=== PATIENT | female | born 2000 | race Caucasian/White ===

== ENCOUNTER 2021-08-30 11:51 | Outpatient (CLI) | payer BC, SELFPAY ==
--- NOTE | 2021-08-30 12:12 | ECHO_ITS ---
Patient Info Name: Angelique Lea Age: 20 years : 2000 Gender: Female Ht: 64 in Wt: 270 lbs BSA: 2.42 m2 HR: 78 bpm BP: 105 / 78 mmHg Technical Quality: Fair Exam Date: 08/30/2021 12:50 PM Exam Location: [facility] Patient Status: Outpatient Admit Date: 08/30/2021 Staff Ordering Physician: Ignacio Shah DO Automatic Shirring Machine Operator: Aline Valderrama RDCS Attending Provider: Ignacio Shah DO Referring Physician: Pablo PEREZ; Exam Type: CA echo doppler color flow Study Info Indications I47.1 - Supraventricular tachycardia Complete two-dimensional, color flow and Doppler transthoracic echocardiogram is performed. Summary 1. Complete two-dimensional, color flow and Doppler transthoracic echocardiogram is performed. 2. Left ventricular chamber dimension is normal. 3. Left ventricular systolic function is normal, estimated at 65-70%. 4. The left ventricular diastolic function is normal. 5. E/e' 7 is not elevated. 6. Global longitudinal strain is normal at -17.1%. 7. No pulmonary hypertension, estimated pulmonary arterial systolic pressure is 23 mmHg. 8. There is trivial pericardial effusion. Left Ventricle E/e' 7 is not elevated. Global longitudinal strain is normal at -17.1%. Left ventricular chamber dimension is normal. Left ventricular systolic function is normal, estimated at 65-70%. The left ventricular diastolic function is normal. Right Ventricle Right ventricular systolic function is normal and with normal TAPSE 2.7 cm. Right ventricular chamber dimension is normal. Left Atria Left atrial chamber dimension is normal. Right Atria Right atrial chamber dimension is normal. Aortic Valve The aortic valve is trileaflet. There is no aortic valve stenosis. There is no aortic valve regurgitation. Pulmonic Valve There is no pulmonic regurgitation. Mitral Valve There is no mitral valve stenosis. There is no mitral valve regurgitation. Tricuspid Valve There is no tricuspid valve regurgitation. No pulmonary hypertension, estimated pulmonary arterial systolic pressure is 23 mmHg. Pericardium/Pleural There is trivial pericardial effusion. Inferior Vena Cava Normal inferior vena cava with >50% collapse upon inspiration consistent with normal right atrial pressure, 5 mmHg. Aorta The aortic root size at the sinus of Valsalva is normal. Left Ventricular Outflow Tract Name Value Normal LVOT 2D LVOT Diameter 2.0 cm LVOT Doppler LVOT Peak Gradient 4 mmHg LVOT Mean Gradient 2 mmHg LVOT VTI 17 cm LVOT VTI/AV VTI Ratio 0.9 LVOT Stroke Volume 52 ml LVOT CO 3.9 l/min LVOT CI 1.6 l/min/m2 Pulmonic Valve Name Value Normal RVOT Doppler
== END 2021-08-30 11:52 | disposition home or self-care (01) ==
LOC: ANHCARD 11:56
PROVIDERS: PCP Physician Assistant; Visit Provider Internal Medicine Cardiovascular Disease
DX: I47.1 Supraventricular tachycardia (principal)
CPT/HCPCS: 93306

== ENCOUNTER 2021-11-30 23:19 | Observation (INO) | payer BC, SELFPAY ==
--- NOTE | ~2021-11-30 | XR_ITS ---
EXAMINATION: XR chest 1V INDICATION: Chest pain TECHNIQUE: AP view of the chest is obtained. COMPARISON: 05/12/2018 FINDINGS: The lungs are free of acute opacities. No pleural effusion or pneumothorax. The cardiomedia stinal silhouette is normal. The visualized bones and soft tissues are unremarkable. IMPRESSION: 1. No acute cardiopulmonary abnormality. Reviewed, dictated and finalized at location B.
--- NOTE | ~2021-11-30 | CT_ITS ---
EXAMINATION: CT BRAIN W/O DATE: 12/01/2021 00:08 INDICATION: Left-sided weakness. Suspected CVA. TECHNIQUE: Computed tomography (CT) of the head was performed without intravenous contrast. The dose- length product was 605.33 mGy-cm. Automated exposure control and iterative reconstruction technique w ere employed. COMPARISON: No prior studies for comparison. FINDINGS: Normal brain parenchymal volume for age. Normal estes-white differentiation. No acute intrac ranial hemorrhage, infarction, mass or mass effect. No ventriculomegaly or midline shift. Midline sagittal images demonstrate a normal corpus callosum, c raniovertebral junction and sella turcica. Basilar cisterns are patent. Paranasal sinuses and mastoids are pneumatized. No depressed skull fractures. IMPRESSION: 1. No acute intracranial abnormality. Reviewed, dictated and finalized at location A.
--- NOTE | ~2021-11-30 | MR_ITS ---
EXAMINATION: MR brain/brain stem wo con DATE: 12/01/2021 10:01 INDICATION: Left-sided weakness TECHNIQUE: Magnetic resonance imaging (MRI) of the brain and brainstem was performed without intraven ous contrast. Sequences included sagittal and axial T1-weighted SE, axial diffusion-weighted FS SE, a xial T2*-weighted GRE, axial 3D SWAN, axial T2-weighted FLAIR, and axial T2-weighted FSE. Apparent di ffusion coefficient (ADC) maps were created. COMPARISON: None. FINDINGS: There are no areas of restricted diffusion to suggest acute infarction. No intracranial hemorrhage or abnormal intracranial mass lesion. There are no intraparenchymal signal abnormalities seen on the ot her pulse sequences. The ventricles are symmetric and normal in size. There are no abnormal extra-axi al fluid collections. Flow voids are seen in the cerebral arteries on the T2-weighted sequences consi stent with their expected patency. Mild mucoperiosteal thickening the bilateral maxillary and ethmoid sinuses. Visualized orbits and soft tissues are unremarkable. IMPRESSION: 1. Normal brain. No acute intracranial process. Reviewed, dictated and finalized at location A.
--- NOTE | ~2021-11-30 | MR_ITS ---
EXAMINATION: MR cervical spine wo con, MR thoracic spine wo con DATE: 12/02/2021 11:58 INDICATION: Left-sided weakness. Multiple sclerosis. TECHNIQUE: 1. Magnetic resonance imaging (MRI) of the cervical spine was performed without intravenous contrast. Sequences included sagittal T2-weighted FSE, sagittal T2-weighted FS FSE, sagittal T1-weighted FSE, axial MERGE and axial T2-weighted FSE. 2. MRI of the thoracic spine was performed without intravenous contrast. Sagittal localizer T1-weight ed FSE of the cervicothoracic spine was obtained. Thoracic spine sequences included sagittal T2-weigh rasta FSE, sagittal T1-weighted SE, Sagittal T2-weighted FS FSE, and axial T2-weighted FSE. COMPARISON: None FINDINGS: Cervical spine: Bone alignment is normal. Vertebral body heights are normal. Bone marrow signal intensity is normal . Intervertebral disc heights are normal. Facet and uncovertebral joints are normal. No central canal or neural foraminal stenosis. Spinal cord signal intensity is normal. There is mild lymphadenopathy more notable for number than size with relatively symmetric pattern of multiple lymph nodes showing b etween 5 mm and 9 mm in maximal short axis diameters along the bilateral jugular chains and posterior cervical triangles. Thoracic spine: Alignment is normal. Vertebral body heights are normal with normal marrow signal throughout. This als o demonstrate normal height and signal. The discs do not extend beyond the endplate margins. Multilev el minimal to mild facet osteoarthritis throughout the thoracic spine. No neural foraminal stenosis i n the thoracic spine. The conus terminates at L1-L2. Normal thoracic spinal cord signal. Mild subcuta neous edema posterior to the upper lumbar spine. Paraspinal soft tissues are otherwise unremarkable. IMPRESSION: 1. Multilevel minimal to mild thoracic facet osteoarthritis without neural foraminal stenosis. Otherw ise unremarkable MRI of the cervical and thoracic spine with no evident cord lesions. 2. Mild cervical lymphadenopathy along the jugular chains and posterior cervical triangles which like ly reactive with lymph nodes more notable for number than size. Reviewed, dictated and finalized at location A. IMPRESSION: 1. Multilevel minimal to mild thoracic facet osteoarthritis without neural fora olu stenosis. Otherwise unremarkable MRI of the cervical and thoracic spine w ith no evident cord lesions. 2. Mild cervical lymphadenopathy along the jugular chains and posterior cervica l triangles which likely reactive with lymph nodes more notable for number than size.
--- NOTE | 2021-11-30 23:23 | ECG_ITS ---
Measurements Intervals [place] Rate: 88 P: 24 NC: 138 QRS: 92 QRSD: 82 T: 29 QT: 356 QTc: 432 Interpretive Statements SINUS RHYTHM RIGHT AXIS DEVIATION INCOMPLETE RIGHT BUNDLE BRANCH BLOCK BORDERLINE T WAVE ABNORMALITY- ANTERIOR LEADS BORDERLINE ECG Electronically Signed On 12-01-2021 7:02:25 CDT by Ignacio Shah D.O.
[2021-11-30 23:44] VITALS: BP 130/90; PULSE 97; RESP 18; TEMP 36.8; O2SAT 99
--- NOTE | 2021-11-30 23:52 | ED.CHESTPAIN ---
HPI - Chest Pain General Chief Complaint: Neuro Symptoms/Deficit Stated Complaint: chest pain Time Seen by Provider: 11/30/21 23:49 Source: RN notes reviewed History of Present Illness HPI narrative: Patient presents emergency department from home via EMS for chest pain and left-sided weakness. Patient states she was in the bathtub approximately 8:30 PM tonight she states that she began to have numbness and weakness in her left arm and leg she states that time she can get out of the bathtub and had to be picked up out of the bathtub by her family. States she then developed left-sided chest pain that did not radiate pain was described as sharp and stabbing. Patient states she continues have left-sided weakness and called EMS to transport her to the emergency department. Patient states she has several similar episodes of weakness before in the past she states that she has had history of right-sided weakness approximately a year ago in which she had to go to physical therapy to learn to use her right side again and not then return back to normal states she had another episode in September where she went to [facility] where she could not move the left side of her body she states that at that time she left AGAINST MEDICAL ADVICE and symptoms took approximately 3 weeks to return states she does have a history of rapid heart rate and is followed by Dr. Morrissey for cardiology. States she does have psychiatric history and is followed by psychiatry states she has an IUD and does not take oral control pills Related Data Home Medications Medication Instructions Recorded Confirmed docusate calcium 50 mg capsule mg PO 05/31/21 08/11/21 albuterol sulfate 2.5 mg/3 mL inhalation PRN Wheezing 12/01/21 (0.083 %) solution for nebulization aspirin 81 mg tablet,delayed 81 mg PO DAILY 12/01/21 12/01/21 release cetirizine 10 mg tablet 10 mg PO DAILY 12/01/21 12/01/21 doxepin 75 mg capsule 1 cap PO DAILY 12/01/21 12/01/21 fluoxetine 20 mg capsule 1 cap PO HS 12/01/21 12/01/21 gabapentin 300 mg capsule 300 cap PO TID 12/01/21 12/01/21 metoprolol tartrate 25 mg tablet 25 mg PO BID 12/01/21 12/01/21 Allergies Allergy/AdvReac Type Severity Reaction Status Date / Time sulfamethoxazole Allergy Severe Verified 11/28/18 17:51 trimethoprim Allergy Severe Verified 11/28/18 17:51 citalopram Allergy Intermediate Verified 11/28/18 17:51 Penicillins Allergy Intermediate Hives / Verified 11/28/18 17:51 Red Face risperidone Allergy Intermediate Verified 11/28/18 17:51 sertraline Allergy Mild Verified 11/28/18 17:51 Review of Systems Review of Systems: Gen.: Denies fevers or chills Eyes: States blindness in left eye and partial blindness in right eye ENT: Denies congestion Respiratory: Denies shortness of breath or cough CV: Reports chest pain GI: Denies abdominal pain nausea, emesis or diarrhea Musculoskeletal: Denies back pain or muscle pain Neuro: See HPI Skin: Denies rash Except as documented, all other systems reviewed and negative [facility] Past Medical History Medical History (Updated 12/01/21 @ 06:05 by Jam Richardson DO) PSVT (paroxysmal supraventricular tachycardia) Social History Social History Smoking status: Former smoker Exam Narrative: APPEARANCE: No acute distress, nontoxic, resting in bed HEENT: Normocephalic, atraumatic, OMM, EYES: PERRL, EOMI RESPIRATORY: No respiratory distress, clear to auscultation bilaterally with no rhonchi wheezing or rales CARDIOVASCULAR: RRR s murmur Chest: Tender palpation left anterior chest wall no swelling or ecchymosis ABDOMINAL: Soft, nontender, nondistended MUSCULOSKELETAL: Moves all extremities. No clubbing, cyanosis or edema. NEURO: A and O ?3, following commands, speech normal, no facial droop when asking the patient to try to smile she will barely try to smile can make a fist and face with no problems when puffing at the c
[2021-12-01] VITALS (52 sets, daily range): BP systolic 87–134; BP diastolic 41–105; PULSE 63–100; RESP 14–33; TEMP 36.4–36.5; O2SAT 97–99; BMI 44.2
[2021-12-01 00:22] LABS: Basophils Absolute Auto 0.1 K/mm3 (0.0-0.1); Basophils Percent Auto 0.9 % (0.2-1.2); Eosinophils Absolute Auto 0.2 K/mm3 (0-0.3); Eosinophils Percent Auto 1.9 % (0-4.4); Hematocrit 47.7 % (37.0-47.0); Hemoglobin 14.9 g/dL (12.0-15.0); Immature Granulocyte Absolute 0.03 K/mm3 (0.00-0.031); Immature Granulocyte Percent A 0.3 % (0-0.5); Lymphocytes Absolute Auto 2.77 K/mm3 (0.9-3.2); Lymphocytes Percent Auto 30.5 % (18.3-44.2); Mean Corpuscular HGB Conc 31.2 g/dl (32-36); Mean Corpuscular Hemoglobin 28.6 pg (26-34); Mean Corpuscular Volume 91.6 fl (80-100); Mean Platelet Volume 11.2 fl (7.4-10.4); Monocytes Absolute Auto 0.7 K/mm3 (0.1-0.6); Monocytes Percent Auto 8.1 % (2.6-8.5); Neutrophils Absolute Auto 5.3 K/mm3 (1.3-6.7); Neutrophils Percent Auto 58.3 % (45.5-73.1); Platelet Count Result 209 k/mm3 (150-375); Red Blood Count 5.21 M/mm3 (4.2-5.4); Red Cell Distribution Width 13.4 % (11.5-14.5); White Blood Count 9.1 K/mm3 (4.5-10.0)
[2021-12-01 00:32] LABS: Alanine Aminotransferase 28 U/L (6-35); Alkaline Phosphatase 93 U/L (38-126); Anion Gap 7 mmol/L (8-16); Aspartate Amino Transferase 26 U/L (14-36); Bilirubin,Total < 0.1 mg/dL (0.2-1.3); Blood Urea Nitrogen 6 mg/dL (7-17); Calcium 8.7 mg/dL (8.4-10.2); Carbon Dioxide 22 mmol/L (22-30); Chloride 109 mmol/L (98-107); Estimated CRCL calculation 185 ml/min; Estimated Glomerular Filt Rate > 60; Glucose 80 mg/dL (65-110); Lipase 65 U/L (23-300); Potassium 3.8 mmol/L (3.4-5.0); Sodium 138 mmol/L (137-145)
[2021-12-01 00:43] LABS: Troponin I < 0.012 ng/mL (0.000-0.034)
[2021-12-01 00:44] LABS: Partial Thromboplastin Time 26.1 SECONDS (22.3-36.8); Prothrombin Time 12.7 Seconds (11.1-14.7)
[2021-12-01 02:58] LABS: D Dimer 0.46 ug/mL (<0.48)
[2021-12-01 03:58] LABS: SARS-CoV-2 RNA PCR Negative
[2021-12-01 04:42] LABS: Appearance Urine Clear (Clear); Bilirubin Urine 1+ (Negative); Blood Urine Negative (Negative); Color Urine Yellow (Yellow); Glucose Urine UA Negative (Negative); Ketones Urine Negative (Negative); Leukocyte Esterase Ur Negative LEU/UL (Negative); Nitrate Urine Negative (Negative); Protein Urine Negative (Negative); Specific Grav Ur >= 1.030 (1.001-1.035); Urobilinogen Urine 0.2 mg/dL (<2.0)
[2021-12-01] MEDS: SODIUM CHLORIDE 0.9% IV 1,000 ML 999 ML IV CONT (04:55)
[2021-12-01 05:30] LABS: Bacteria Urine Trace /hpf; Mucus Urine Few /lpf; Squamous Epithelial Cell Urine Many /hpf (Few)
[2021-12-01 05:34] LABS: Add Urine Microscopic? YES
--- NOTE | 2021-12-01 06:27 | ADMGEN ---
This patient, Angelique Lea, was admitted to Medical Room 261-01. Patient/family oriented to hospital policies and general routines including ID bracelet, bed and alarms, visiting hours, pain management, procedures, bathroom and other care routines, personal items, smoking policy, room service/diet, and visiting hours. Information on how to activate the Rapid Response Team has been discussed. Patient/Family are encouraged to report perceived risks to care and to ask questions if they do not understand what they are told or what they should do.
--- NOTE | 2021-12-01 07:23 | PM.IMHP ---
H&P: HPI History of Present Illness Date/Time: 12/01/21 07:23 Chief Complaint: Left-sided weakness and chest pain Narrative: Angelique Lea is a 21 yo female with medical history of autism, depression, anxiety, SVT and possible TIA. She presented to the ED for evaluation of chest pain and left-sided weakness.? She states she was in the bathtub at approximately 8:30 PM last evening when she began to have numbness and weakness to her left arm and leg. She was unable to get out of the bathtub and had to be picked up by her family.? At that time, she had an episode of left-sided chest pain that did not radiate, was moderate in sensation and was sharp and stabbing.? She reports several similar episodes of weakness to her extremities before, both the the right and left side that started in February of 2021. In September of this year, she was evaluated at [facility], told she had a TIA and was discharged, although ED notes indicate she reported leaving AMA (see ED note). She has had prior right-sided weakness approximately a year ago in which she had to go to physical therapy to learn to use her right side again. Following the episode in September it took approximately 3 weeks for return of function. She denies chest pain currently, no shortness of breath, abdominal pain, diaphoresis, N/V/D, constipation, dysuria, or ROPER. She is legally blind at baseline without noticeable change recently. She does have history of migraine ROPER, but denies one currently. Additionally, she reportly had syncopal episode when removed from the bathtub. She has a history of POTS and reports episodes of passing out previously. She denies recent trauma, abnormal rashes, tick bites, increased stress, new medications, or sick contacts. In the ED, her vitals were stable. Lab work showed unremarkable CBC, chemistry, initial troponin and normal d-dimer. Chest x-ray was without acute disease, CT head was negative and EKG showed normal sinus rhythm with borderline t-wave changes in anterior leads. Dr. Grace, [facility], was contacted in the ED and did not recommend tPA administration. He recommended MRI evaluation for possible demylinating disease and possible Conversion disease. The patient was treated with ASA 324 mg PO x1, 1L NS fluids, and IV acetaminophen 1 gram. Patient was referred fro observation and further neurologic evaluation. Review of Systems Review of Systems: All systems reviewed & are unremarkable except as noted in HPI and below PMFSH Past Medical History Medical History (Updated 12/01/21 @ 17:21 by Florence Aldana APRN) Autism Depression with anxiety H/O retained foreign body fully removed Insomnia POTS (postural orthostatic tachycardia syndrome) PSVT (paroxysmal supraventricular tachycardia) Surgical History Surgical History (Updated 12/01/21 @ 16:55 by Florence Aldana APRN) S/P T&A (status post tonsillectomy and adenoidectomy) Family History Family History Father Cerebrovascular accident Sibling Heart disease Social History Social History (Updated 12/01/21 @ 16:57 by Florence Aldana APRN) Social History: High school student, senior Years smoked: 0.5 Smoking status: Former smoker Alcohol intake: never Substance use: current Substance use type: marijuana Other substance usage details: every few months Last use: No recent use in the past month. Living arrangements: with family Occupation/Education: student Gender identity (if verbalized by the patient): Female Spiritual care concerns: No Meds Home Medications and Allergies Home Medications Medication Instructions Recorded Confirmed Type albuterol sulfate 2.5 mg/3 mL 2.5 mg inhalation TID PRN Wheezing 12/01/21 12/01/21 History (0.083 %) solution for nebulization aspirin 81 mg tablet,delayed 81 mg PO DAILY 12/01/21 12/01/21 History release cetirizine 10 mg tablet 10 mg PO DAILY 12/01/21
--- NOTE | 2021-12-01 07:30 | PC.NURSE ---
Florence Aldana [employer] notified that nine months ago patient had a history of suicide attempt but denies any thoughts at this time.
[2021-12-01] MEDS: GABAPENTIN 300 MG CAPSULE PO ×3 (08:23→21:44)
[2021-12-01] MEDS: METOPROLOL TARTRATE 25 MG TABLET PO ×2 (08:24→21:45)
[2021-12-01] MEDS: ENOXAPARIN 40 MG/0.4 ML SYRINGE SUB-Q (08:25)
[2021-12-01] MEDS: ASPIRIN 81 MG ENTERIC TABLET PO (08:25)
[2021-12-01 08:45] LABS: Troponin I < 0.012 ng/mL (0.000-0.034)
[2021-12-01 11:28] LABS: Troponin I < 0.012 ng/mL (0.000-0.034)
--- NOTE | 2021-12-01 16:40 | WPDNEURCNPN ---
Assessment and Plan Assessment and plan (1) Left-sided muscle weakness: Code(s): M62.81 - Muscle weakness (generalized) Status: Acute Plan considering the clinical symptomatology and considering that MRI of the head is normal MRI of the spinal axis will be warranted to rule out the possibility of demyelinating disease considering the young age of the patient before any further investigations are carried out Consult date: 12/01/21 HPI: Angelique Lea is a 21 year old female admitted to the hospital through the emergency room where she was brought by EMS for the complaints of chest pain and left-sided weakness. Patient reported she was in the bathtub approximately 8:30 p.m. when she developed numbness and weakness of her left upper extremity and left lower extremity and was unable to get out of the bathtub finally she was picked up by her family. she then developed left-sided chest pain sharp and stabbing left-sided weakness, and called EMS to transport her to the emergency room she has had similar episodes of weakness in the past along with the history of right-sided weakness about a year ago she has received the physical therapy to use her right side again but it was not return back to normal when she had another episode when she was evaluated in [place] she does have a history of tachycardia for which she followed by Dr. lamb she has ongoing history of taking multiple medication particularly gabapentin 300 mg capsules 3 times a day fluoxetine 20 mg at night doxepin 75 mg daily and metoprolol 25 mg twice a day her past history is consistent with paroxysmal supra ventricular tachycardia initial evaluation in the emergency room revealed her to have normal vital signs normal routine lab negative CT scan of the head and normal x-ray of the chest also normal MRI of the brain Review of Systems Review of Systems: All systems reviewed & are unremarkable except as noted in HPI and below [facility] Past Medical History Medical History (Updated 12/01/21 @ 07:31 by Florence Aldana APRN) PSVT (paroxysmal supraventricular tachycardia) Family History Family History (Updated 12/01/21 @ 11:42 by Viola Douglas RN) Father Cerebrovascular accident Sibling Heart disease Social History Social History Smoking status: Former smoker Alcohol intake: never Substance use: current Substance use type: marijuana Spiritual care concerns: No Meds Home Medications and Allergies Home Medications Medication Instructions Recorded Confirmed Type albuterol sulfate 2.5 mg/3 mL 2.5 mg inhalation TID PRN Wheezing 12/01/21 12/01/21 History (0.083 %) solution for nebulization aspirin 81 mg tablet,delayed 81 mg PO DAILY 12/01/21 12/01/21 History release cetirizine 10 mg tablet 10 mg PO DAILY 12/01/21 12/01/21 History doxepin 75 mg capsule 1 cap PO DAILY 12/01/21 12/01/21 History fluoxetine 20 mg capsule 1 cap PO HS 12/01/21 12/01/21 History gabapentin 300 mg capsule 300 cap PO TID 12/01/21 12/01/21 History metoprolol tartrate 25 mg tablet 25 mg PO BID 12/01/21 12/01/21 History Allergies Allergy/AdvReac Type Severity Reaction Status Date / Time sulfamethoxazole Allergy Severe Verified 11/28/18 17:51 trimethoprim Allergy Severe Verified 11/28/18 17:51 citalopram Allergy Intermediate Verified 11/28/18 17:51 Penicillins Allergy Intermediate Hives / Verified 11/28/18 17:51 Red Face risperidone Allergy Intermediate Verified 11/28/18 17:51 sertraline Allergy Mild Verified 11/28/18 17:51 Vital Signs Vital Signs - 24 hr 11/30/21 23:44 12/01/21 00:49 12/01/21 00:51 Temperature 36.8 C Pulse Rate 97 86 93 Respiratory Rate 18 26 H 19 Blood Pressure 130/90 103/68 Pulse Oximetry 99 98 Oxygen Delivery Room Air 12/01/21 01:00 12/01/21 01:02 12/01/21 01:15 Temperature Pulse Rate 89 89 90 Respiratory Rate 16 20 24 H Blood Pressure 91/54 L Puls
[2021-12-01] MEDS: ACETAMINOPHEN 325 MG TABLET 650 MG PO (16:52)
[2021-12-01] MEDS: DOXEPIN HCL 25 MG CAPSULE 75 MG PO (21:44)
[2021-12-01] MEDS: FLUoxetine HCL 20 MG CAPSULE PO (21:44)
[2021-12-02] VITALS (9 sets, daily range): BP systolic 107–116; BP diastolic 52–59; PULSE 65–88; RESP 15–17; TEMP 36.4–36.7; O2SAT 97–99
[2021-12-02] MEDS: GABAPENTIN 300 MG CAPSULE PO ×3 (06:17→22:02)
[2021-12-02 06:22] LABS: Basophils Absolute Auto 0.1 K/mm3 (0.0-0.1); Basophils Percent Auto 0.8 % (0.2-1.2); Eosinophils Absolute Auto 0.2 K/mm3 (0-0.3); Eosinophils Percent Auto 2.1 % (0-4.4); Hematocrit 43.9 % (37.0-47.0); Immature Granulocyte Absolute 0.04 K/mm3 (0.00-0.031); Immature Granulocyte Percent A 0.5 % (0-0.5); Lymphocytes Absolute Auto 3.03 K/mm3 (0.9-3.2); Lymphocytes Percent Auto 40.5 % (18.3-44.2); Mean Corpuscular HGB Conc 31.9 g/dl (32-36); Mean Corpuscular Volume 87.8 fl (80-100); Mean Platelet Volume 11.1 fl (7.4-10.4); Monocytes Absolute Auto 0.5 K/mm3 (0.1-0.6); Monocytes Percent Auto 7.2 % (2.6-8.5); Neutrophils Absolute Auto 3.7 K/mm3 (1.3-6.7); Neutrophils Percent Auto 48.9 % (45.5-73.1); Platelet Count Result 356 k/mm3 (150-375); Red Cell Distribution Width 13.6 % (11.5-14.5); White Blood Count 7.5 K/mm3 (4.5-10.0)
[2021-12-02 06:34] LABS: Alanine Aminotransferase 29 U/L (6-35); Albumin Level 3.5 g/dL (3.5-5.1); Alkaline Phosphatase 72 U/L (38-126); Anion Gap 5 mmol/L (8-16); Aspartate Amino Transferase 32 U/L (14-36); Bilirubin,Total 0.4 mg/dL (0.2-1.3); Blood Urea Nitrogen 7 mg/dL (7-17); Calcium 8.6 mg/dL (8.4-10.2); Carbon Dioxide 25 mmol/L (22-30); Chloride 106 mmol/L (98-107); Estimated CRCL calculation 160 ml/min; Estimated Glomerular Filt Rate > 60; Glucose 82 mg/dL (65-110); Potassium 4.1 mmol/L (3.4-5.0); Sodium 136 mmol/L (137-145)
[2021-12-02] MEDS: ASPIRIN 81 MG ENTERIC TABLET PO (08:42)
[2021-12-02] MEDS: ENOXAPARIN 40 MG/0.4 ML SYRINGE SUB-Q (08:42)
[2021-12-02] MEDS: METOPROLOL TARTRATE 25 MG TABLET PO ×2 (08:42→22:02)
--- NOTE | 2021-12-02 10:21 | WPDNEUROPN ---
Subjective Date/time seen: 12/02/21 10:21 Interval history: evaluation is being carried out for the possibility of the demyelinating disease MRI of the brain was negative and MRI of the spinal axis is pending considering her allergies the studies will be done without contrast this morning she has no specific complaints Objective Data Vital Signs Vital Signs: Vital Signs - 24 hr 12/01/21 12:01 12/01/21 14:55 12/01/21 16:03 Temperature 36.5 C Pulse Rate 87 70 77 Respiratory Rate 16 Blood Pressure 131/71 Pulse Oximetry 98 12/01/21 21:01 12/01/21 21:45 12/02/21 04:07 Temperature 36.4 C 36.6 C Pulse Rate 63 63 65 Respiratory Rate 16 16 Blood Pressure 129/68 107/52 L Pulse Oximetry 99 98 12/01/21 20:00 12/02/21 00:00 12/02/21 04:00 Temperature Pulse Rate 70 73 69 Respiratory Rate Blood Pressure Pulse Oximetry 12/02/21 08:42 Temperature Pulse Rate 88 Respiratory Rate Blood Pressure Pulse Oximetry Intake/Output Intake/Output: Intake & Output 11/29/21 11/30/21 12/01/21 12/02/21 23:59 23:59 23:59 23:59 Intake Total 1130 660 Output Total 1000 0 Balance 130 660 Meds/Results Medications: Active Medications Generic Name Dose Route Start Last Admin Trade Name Freq PRN Reason Stop Dose Admin Acetaminophen 650 mg 12/01/21 16:24 12/01/21 16:52 Acetaminophen 325 Mg Tablet PO 650 mg Q4H PRN Administration Mild Pain (1-3) or Fever Albuterol 2.5 mg 12/01/21 07:19 Albuterol Sulfate Neb 2.5 Mg/3 Ml Inh INHALATION TID PRN Shortness Of Breath Or Wheezing Aspirin 81 mg 12/01/21 09:00 12/02/21 08:42 Aspirin 81 Mg Enteric Tablet PO 81 mg DAILY [place] Administration Doxepin HCl 75 mg 12/01/21 21:00 12/01/21 21:44 Doxepin Hcl 25 Mg Capsule PO 75 mg HS [place] Administration Enoxaparin Sodium 40 mg 12/01/21 09:00 12/02/21 08:42 Enoxaparin 40 Mg/0.4 Ml Syringe SUB-Q 40 mg DAILY [place] Administration Fluoxetine HCl 20 mg 12/01/21 21:00 12/01/21 21:44 Fluoxetine Hcl 20 Mg Capsule PO 20 mg HS [place] Administration Gabapentin 300 mg 12/01/21 07:30 12/02/21 06:17 Gabapentin 300 Mg Capsule PO 300 mg Q8HR [place] Administration Metoprolol Tartrate 25 mg 12/01/21 09:00 12/02/21 08:42 Metoprolol Tartrate 25 Mg Tablet PO 25 mg Q12HR [place] Administration Radiology Results: ITS Impressions Head CT 12/01/21 07:33 IMPRESSION: 1. No acute intracranial abnormality. Chest X-Ray 12/01/21 08:21 IMPRESSION: 1. No acute cardiopulmonary abnormality. Brain MRI 12/01/21 10:22 IMPRESSION: 1. Normal brain. No acute intracranial process. Labs Labs: Laboratory Results - last 24 hr 12/01/21 12/02/21 12/02/21 10:54 05:24 05:24 WBC 7.5 RBC 5.00 Hgb 14.0 Hct 43.9 MCV 87.8 MCH 28.0 MCHC 31.9 L RDW 13.6 Plt Count 356 D MPV 11.1 H Immature Gran % (Auto) 0.5 Neut % (Auto) 48.9 Lymph % (Auto) 40.5 Upson % (Auto) 7.2 Eos % (Auto) 2.1 Baso % (Auto) 0.8 Lymph # (Auto) 3.03 Upson # (Auto) 0.5 Eos # (Auto) 0.2 Baso # (Auto) 0.1 Abs Immat Gran (auto) 0.04 H Absolute Neuts (auto) 3.7 Absolute Nucleated RBC 0.0 Nucleated RBC % 0.0 Sodium 136 L Potassium 4.1 Chloride 106 Carbon Dioxide 25 Anion Gap 5 L BUN 7 Creatinine 0.60 L Estim Creat Clear Calc 160 Estimated GFR > 60 Glucose 82 Calcium 8.6 Total Bilirubin 0.4 AST 32 ALT 29 Alkaline Phosphatase 72 Troponin I < 0.012 Total Protein 6.0 L Albumin 3.5 Quality VTE Prophylaxis VTE prophylaxis: pharmacologic ordered (Lovenox SQ) Amg Follow-up Billing Inpatient Follow-up [id number] [facility]
--- NOTE | 2021-12-02 12:48 | PM.IMPN ---
Progress Note: A&P Assessment and Plan (1) Left-sided muscle weakness: Code(s): M62.81 - Muscle weakness (generalized) Status: Acute Assessment and Plan: Dr. Grace from [facility] Neurology called from ED and did not think symptoms consistent with acute stroke. R/O demyelinating disease. Patient has had 2 previous episodes of unilateral weakness and reported vision changes. CT head negative for acute findings. MRI normal as above. Consult Neurology and appreciate recommendations. MRI C-spine and T-spine negative for spinal lesions concerning for demyelinating disease PT/OT following and care coordination consulted for home health needs. Symptoms likely from psychological etiology- continue management with antidepressant medications. (2) Chest pain: Qualifiers: Chest pain type: unspecified Qualified Code(s): R07.9 - Chest pain, unspecified Code(s): R07.9 - Chest pain, unspecified Status: Acute Assessment and Plan: H/O PSVT. EKG with SR w/incomplete RBBB and borderline T-wave abnormality anterior leads 08/30/21 TTE normal LV systolic & diastolic function normal, EF 65% Troponin negative x3. D-dimer normal Telemetry without ectopy. Electrolytes stable Continue PPI therapy. Resolved. (3) PSVT (paroxysmal supraventricular tachycardia): Code(s): I47.1 - Supraventricular tachycardia Status: Chronic Assessment and Plan: Stable. Continue metoprolol PO BID at home dose. Monitor telemetry. (4) Depression with anxiety: Code(s): F41.8 - Other specified anxiety disorders Status: Chronic Assessment and Plan: Continue home doses of prozac, gabapentin, and doxepin. Patient should follow up with Psychiatry after discharge. Plan DISPOSITION: Home with family, possible home health Estimated LOS: Plan to discharge home tomorrow. CODE STATUS: FULL CODE Time Spent With Patient Time with patient: 15 - 25 minutes Subjective Date/time seen: 12/02/21 12:48 Patient found sitting up in bed. OT is at bedside. The patient reports she is able to move her left arm today and has sensation. It still feels weak and she is not able to lift it above her head. She still dose not have sensation or movement to left leg. Review of Systems Review of Systems: All systems reviewed & are unremarkable except as noted in HPI and below ENT: Comments: Snoring Neurologic: Comments: Falls asleep easily during the day. Exam Narrative: Constitutional:? No distress. Well-developed adult female lying in bed. Mental status/Psych: Awake. Alert. Oriented x3. Speech clear and unpressured. Cooperative with examination. Flat affect. Neuro: No trauma. Full strength RUE and RLE 5/5. +LUE 3/5 and LLE 0/5. Reduced sensation LLE. No facial droop. Tongue midline. CN grossly intact. HEENT:? Normocephalic. Atraumatic. EOM intact. PERRL 3 mm bilaterally brisk. Moist mucous membranes.? No scleral icterus.? Neck:?Obese. No carotid bruits or JVD noted Lungs:? Lung sounds clear to auscultation bilaterally. RR regular and unlabored.? No accessory muscle use.?Speaking in full sentences Cardiovascular:? Normal S1-S2 regular rate and rhythm. No murmurs, gallops or rubs. Abdomen:? Soft, obese, and nontender to palpation.? Normoactive bowel sounds. Extremities: No erythema, edema or ecchymosis. Radial and dorsalis pedis pulses +2 bilaterally. Skin:? Fair, warm & dry. No open wounds or rashes. Objective Data Vital Signs Vital Signs: Vital Signs - 24 hr 12/01/21 14:55 12/01/21 16:03 12/01/21 21:01 Temperature 97.7 F 97.6 F Pulse Rate 70 77 63 Respiratory Rate 16 16 Blood Pressure 131/71 129/68 Pulse Oximetry 98 99 Oxygen Delivery 12/01/21 21:45 12/02/21 04:07 12/01/21 20:00 Temperature 97.8 F Pulse Rate 63 65 70 Respiratory Rate 16 Blood Pressure 107/52 L Pulse Oximetry 98 Oxygen Delivery
[2021-12-02] MEDS: DOXEPIN HCL 25 MG CAPSULE 75 MG PO (22:03)
[2021-12-02] MEDS: FLUoxetine HCL 20 MG CAPSULE PO (22:03)
[2021-12-03] VITALS (7 sets, daily range): BP systolic 109–111; BP diastolic 51–64; PULSE 64–85; RESP 17–20; TEMP 36.6; O2SAT 93–100
[2021-12-03] MEDS: GABAPENTIN 300 MG CAPSULE PO ×2 (05:45→13:01)
[2021-12-03 06:09] LABS: Basophils Absolute Auto 0.1 K/mm3 (0.0-0.1); Basophils Percent Auto 0.6 % (0.2-1.2); Eosinophils Absolute Auto 0.2 K/mm3 (0-0.3); Eosinophils Percent Auto 1.8 % (0-4.4); Hematocrit 43.5 % (37.0-47.0); Hemoglobin 14.4 g/dL (12.0-15.0); Immature Granulocyte Absolute 0.05 K/mm3 (0.00-0.031); Immature Granulocyte Percent A 0.5 % (0-0.5); Lymphocytes Absolute Auto 2.69 K/mm3 (0.9-3.2); Lymphocytes Percent Auto 28.9 % (18.3-44.2); Mean Corpuscular HGB Conc 33.1 g/dl (32-36); Mean Corpuscular Hemoglobin 28.6 pg (26-34); Mean Corpuscular Volume 86.5 fl (80-100); Mean Platelet Volume 10.8 fl (7.4-10.4); Monocytes Absolute Auto 0.8 K/mm3 (0.1-0.6); Monocytes Percent Auto 8.5 % (2.6-8.5); Neutrophils Absolute Auto 5.6 K/mm3 (1.3-6.7); Neutrophils Percent Auto 59.7 % (45.5-73.1); Platelet Count Result 348 k/mm3 (150-375); Red Blood Count 5.03 M/mm3 (4.2-5.4); Red Cell Distribution Width 13.5 % (11.5-14.5); White Blood Count 9.3 K/mm3 (4.5-10.0)
[2021-12-03 06:19] LABS: Estimated CRCL calculation 160 ml/min; Estimated Glomerular Filt Rate > 60
[2021-12-03] MEDS: ACETAMINOPHEN 325 MG TABLET 650 MG PO (06:43)
[2021-12-03] MEDS: METOPROLOL TARTRATE 25 MG TABLET PO (08:44)
[2021-12-03] MEDS: ENOXAPARIN 40 MG/0.4 ML SYRINGE SUB-Q (08:45)
[2021-12-03] MEDS: ASPIRIN 81 MG ENTERIC TABLET PO (08:45)
--- NOTE | 2021-12-03 12:19 | PM.DS ---
DS: Admitting Diagnosis Discharge Date 12/03/2021 1220 Admitting Diagnosis Left-sided weakness Atypical chest pain DS: Discharge Diagnosis Discharge Diagnosis (1) Left-sided muscle weakness: Code(s): M62.81 - Muscle weakness (generalized) Status: Acute (2) Chest pain: Qualifiers: Chest pain type: unspecified Qualified Code(s): R07.9 - Chest pain, unspecified Code(s): R07.9 - Chest pain, unspecified Status: Acute (3) Loud snoring: Code(s): R06.83 - Snoring Status: Acute (4) Daytime hypersomnia: Code(s): G47.10 - Hypersomnia, unspecified Status: Acute (5) Depression with anxiety: Code(s): F41.8 - Other specified anxiety disorders Status: Chronic (6) PSVT (paroxysmal supraventricular tachycardia): Code(s): I47.1 - Supraventricular tachycardia Status: Chronic DS: Summary Hospital Course Reason for hospitalization: left-sided weakness Hospital Course: Angelique Lea is a 21 yo female with medical history of autism, depression, anxiety, SVT and possible TIA. She presented to the ED for evaluation of chest pain and left-sided weakness.? She was in her usual state of health until the day before admission when while in the bathtub at approximately 8:30 PM when she began to have numbness and weakness to her left arm and leg. She was unable to get out of the bathtub and had to be picked up by her family.? At that time, she had an episode of left-sided chest pain that did not radiate, was moderate in sensation and was sharp and stabbing.? She reported several similar episodes of weakness to her extremities before, both the the right and left side that started in February of 2021. In September of this year, she was evaluated at [facility], told she had a TIA and was discharged, although ED notes indicate she reported leaving AMA (see ED note). She has had prior right-sided weakness approximately a year ago in which she had to go to physical therapy to learn to use her right side again. Following the episode in September it took approximately 3 weeks for return of function. She denies chest pain currently, no shortness of breath, abdominal pain, diaphoresis, N/V/D, constipation, dysuria, or ROPER. She is legally blind at baseline without noticeable change recently. She does have history of migraine ROPER, but denies one currently. Additionally, she reportly had syncopal episode when removed from the bathtub. She has a history of POTS and reports episodes of passing out previously. She denies recent trauma, abnormal rashes, tick bites, increased stress, new medications, or sick contacts. In the ED, her vitals were stable. Lab work showed unremarkable CBC, chemistry, initial troponin and normal d-dimer. Chest x-ray was without acute disease, CT head was negative and EKG showed normal sinus rhythm with borderline t-wave changes in anterior leads. Dr. Grace, [facility] Neurology, was contacted in the ED and did not recommend tPA administration. He recommended MRI evaluation for possible demylinating disease and possible Conversion disease. The patient was treated with ASA 324 mg PO x1, 1L NS fluids, and IV acetaminophen 1 gram. Patient was referred fro observation and further neurologic evaluation. The patient was referred for observation. Neurology was consulted for assistance with management. MRI of the brain, C-spine and T-spine were negative for acute stroke, mass, hemorrhage or spinal lesions. PT/OT was consulted and the patient showed improvement in mobility and function. Left arm weakness and parethesia improved. Left leg weakness improved, as well, although she was still c/o numbness and tingling throughout. The patient was able to ambulate with hand holding assistance approximately 140 feet prior to discharge. Home health was arranged at discharge for further evaluation. The patient reports c/o falling asleep randomly throughout the day and snores at night. She reports c/o ROPER
--- NOTE | 2021-12-03 13:31 | PC.NURSE ---
Spoke with Dr. Rose about patient discharging. He states he is fine with her discharging home with current orders.
[2021-12-05 15:20] LABS: Glucose Point of Care 89 mg/dl (65-105)
== END 2021-12-03 14:51 | disposition home health service (06) ==
LOC: ANHED 12-01 00:11 → ANH2MED 12-01 06:01
PROVIDERS: Nurse Practitioner Family; Admitting Provider Internal Medicine; Emergency Provider Emergency Medicine; PCP Physician Assistant; Visit Provider Student in an Organized Health Care Education/Training Program
DX: M62.81 Muscle weakness (generalized) (principal); R07.9 Chest pain, unspecified; I47.1 Supraventricular tachycardia; R06.83 Snoring; G47.10 Hypersomnia, unspecified; F84.0 Autistic disorder; F32.A Depression, unspecified; F41.9 Anxiety disorder, unspecified; I49.8 Other specified cardiac arrhythmias; F12.90 Cannabis use, unspecified, uncomplicated; Z87.891 Personal history of nicotine dependence; Z79.51 Long term (current) use of inhaled steroids; Z20.822 Contact with and (suspected) exposure to COVID-19
CPT/HCPCS: 36415; 70450; 70551; 71045; 72141; 72146; 80053; 81001; 81025; 82565; 82948; 83690; 84443; 84484; 85025; 85380; 85610; 85730; 93005; 96365; 96366; 96372; 97110; 97116; 97165; 97530; 97535; 99285; A9270; C9803; G0378; G0379; J0131; J1650; J7030; U0003; U0005

== ENCOUNTER 2022-02-08 22:29 | Observation (INO) | payer BC, SELFPAY ==
--- NOTE | ~2022-02-08 | XR_ITS ---
EXAMINATION: XR chest 2V DATE: 02/08/2022 23:21 INDICATION: Multiple episodes of syncope TECHNIQUE: AP and lateral views of the chest were obtained. COMPARISON: Chest radiograph dated 12/01/2021 FINDINGS: The lungs remain clear with no focal airspace opacities, pulmonary edema, pleural effusion or pneumot horax. The cardiomediastinal silhouette is normal. Visualized bones and soft tissues are unremarkable . IMPRESSION: 1. No acute cardiopulmonary disease. Reviewed, dictated and finalized at location A.
--- NOTE | ~2022-02-08 | CT_ITS ---
EXAMINATION: CT brain wo con DATE: 02/08/2022 23:24 INDICATION: Headache. Syncope. Unwilling to move right side. TECHNIQUE: Computed tomography (CT) of the head was performed without intravenous contrast. Sagittal and coronal reconstructions were performed. The mA was adjusted according to patient size. Iterative reconstruction technique was employed. The dose-length product was 605.33 mGy-cm. COMPARISON: Brain MR dated 12/01/2021 FINDINGS: No acute intracranial hemorrhage, acute infarction or abnormal extra axial fluid collection. Ventricl es are normal and symmetric. No mass/mass effect. Mild mucosal thickening in the right maxillary sinu s. The orbits and mastoid air cells are normal. IMPRESSION: 1. Normal brain. No acute intracranial process. Reviewed, dictated and finalized at location A.
[2022-02-08 22:30] VITALS: BP 133/62; PULSE 79; RESP 20; TEMP 36.4; O2SAT 99
[2022-02-08 22:45] VITALS: PULSE 79
--- NOTE | 2022-02-08 23:05 | ECG_ITS ---
Measurements Intervals Ellis Rate: 86 P: 16 VA: 140 QRS: 83 QRSD: 90 T: 11 QT: 365 QTc: 437 Interpretive Statements SINUS RHYTHM INCOMPLETE RIGHT BUNDLE BRANCH BLOCK NONSPECIFIC T-WAVE ABNORMALITY- ANTERIOR LEADS BORDERLINE ECG COMPARED TO ECG 11/30/2021 23:47:56 NO SIGNIFICANT CHANGES Electronically Signed On 02-09-2022 6:34:22 CDT by Ignacio Shah D.O.
--- NOTE | 2022-02-08 23:11 | ED.GENADULT ---
HPI - General Adult General Chief complaint: Syncope Stated complaint: SYNCOPE Time Seen by Provider: 02/08/22 22:30 Source: patient, EMS and old records reviewed Mode of arrival: EMS Limitations: no limitations History of Present Illness HPI narrative: Patient is a 21-year-old female, with a past medical history of POTS, anxiety, and depression, who presents to the ED via EMS with report of syncope. Patient reports she was sitting down talking to her grandparents tonight when she had a syncopal episode. She states she fell out of the chair and hit her head on the ground. She then had reportedly 9 more syncopal episodes at home. EMS was called. She was found on the floor by EMS. She states she had 2 more syncopal episodes with EMS. Patient reports a history of frequent syncopal episodes but states she came to the ED today because she cannot feel the right side of her body. Denies any vision changes, palpitations, dizziness, chest pain, difficulty breathing, nausea, vomiting, seizure like activity. Related Data Home Medications Medication Instructions Recorded Confirmed albuterol sulfate 2.5 mg/3 mL 2.5 mg inhalation TID PRN Wheezing 12/01/21 02/09/22 (0.083 %) solution for nebulization aspirin 81 mg tablet,delayed 81 mg PO DAILY 12/01/21 02/09/22 release cetirizine 10 mg tablet 10 mg PO DAILY 12/01/21 02/09/22 doxepin 75 mg capsule 1 cap PO DAILY 12/01/21 02/09/22 metoprolol tartrate 25 mg tablet 25 mg PO BID 12/01/21 02/09/22 fluoxetine 40 mg capsule 40 mg PO DAILY 02/09/22 02/09/22 Allergies Allergy/AdvReac Type Severity Reaction Status Date / Time sulfamethoxazole Allergy Severe Swelling Verified 02/08/22 22:47 of Lip/Tongue/Throat trimethoprim Allergy Severe Swelling Verified 02/08/22 22:47 of Lip/Tongue/Throat citalopram Allergy Intermediate Swelling Verified 02/08/22 22:47 of Lip/Tongue/Throat Penicillins Allergy Intermediate Hives / Verified 02/08/22 22:47 Red Face risperidone Allergy Intermediate Swelling Verified 02/08/22 22:47 of Lip/Tongue/Throat sertraline Allergy Mild Swelling Verified 02/08/22 22:47 of Lip/Tongue/Throat cinnamon Allergy Swelling Verified 02/08/22 22:47 of Lip/Tongue/Throat Review of Systems Review of Systems: CONSTITUTIONAL: Denies fever, chills, or sweats. EYES: Denies visual changes. CARDIOVASCULAR: Denies chest pain, palpitations. RESPIRATORY: Denies dyspnea. GASTROINTESTINAL: Denies abdominal pain, nausea, vomiting. NEUROLOGIC: Reports ROPER, syncope, R sided weakness. Denies seizure, dizziness, lightheadedness, numbness. All systems reviewed & are unremarkable except as noted in HPI and below PMFSH Past Medical History Medical History Autism Depression with anxiety H/O retained foreign body fully removed Insomnia POTS (postural orthostatic tachycardia syndrome) PSVT (paroxysmal supraventricular tachycardia) Surgical History Surgical History S/P T&A (status post tonsillectomy and adenoidectomy) Family History Family History Father Cerebrovascular accident Sibling Heart disease Social History Social History Social History: High school student, senior Years smoked: 0.5 Smoking status: Current every day smoker Tobacco type: cigarettes Alcohol intake: never Substance use: current Substance use type: marijuana Other substance usage details: every few months Last use: No recent use in the past month. Gender identity (if verbalized by the patient): Female Spiritual care concerns: No Exam Narrative: GENERAL: Well appearing, morbidly obese, non-toxic, in no acute distress. HEAD: Normocephalic, atraumatic. EYES: PERRL/EOMI, conjunctivae shahriar
[2022-02-08 23:27] VITALS: BP 107/66; PULSE 92; RESP 18; O2SAT 100
[2022-02-08 23:38] LABS: Glucose Point of Care 115 mg/dl (65-105)
[2022-02-08 23:45] LABS: Basophils Absolute Auto 0.1 K/mm3 (0.0-0.1); Basophils Percent Auto 0.5 % (0.2-1.2); Eosinophils Absolute Auto 0.1 K/mm3 (0-0.3); Eosinophils Percent Auto 1.2 % (0-4.4); Hematocrit 42.3 % (37.0-47.0); Immature Granulocyte Absolute 0.03 K/mm3 (0.00-0.031); Immature Granulocyte Percent A 0.3 % (0-0.5); Lymphocytes Absolute Auto 3.11 K/mm3 (0.9-3.2); Lymphocytes Percent Auto 27.3 % (18.3-44.2); Mean Corpuscular HGB Conc 33.1 g/dl (32-36); Mean Corpuscular Volume 87.8 fl (80-100); Mean Platelet Volume 10.9 fl (7.4-10.4); Monocytes Absolute Auto 1.1 K/mm3 (0.1-0.6); Monocytes Percent Auto 9.4 % (2.6-8.5); Neutrophils Percent Auto 61.3 % (45.5-73.1); Platelet Count Result 339 k/mm3 (150-375); Red Blood Count 4.82 M/mm3 (4.2-5.4); Red Cell Distribution Width 13.3 % (11.5-14.5); White Blood Count 11.4 K/mm3 (4.5-10.0)
[2022-02-08 23:55] LABS: Alanine Aminotransferase 37 U/L (6-35); Alkaline Phosphatase 106 U/L (38-126); Anion Gap 11 mmol/L (8-16); Aspartate Amino Transferase 33 U/L (14-36); Bilirubin,Total 0.3 mg/dL (0.2-1.3); Blood Urea Nitrogen 8 mg/dL (7-17); Carbon Dioxide 23 mmol/L (22-30); Chloride 103 mmol/L (98-107); Estimated CRCL calculation 154 ml/min; Estimated Glomerular Filt Rate > 60; Glucose 97 mg/dL (65-110); Magnesium 1.9 mg/dL (1.6-2.3); Potassium 3.8 mmol/L (3.4-5.0); Sodium 137 mmol/L (137-145)
[2022-02-08 23:56] LABS: Prothrombin Time 13.1 Seconds (11.1-14.7)
[2022-02-08 23:57] LABS: Bacteria Urine Trace /hpf; Mucus Urine Few /lpf; Squamous Epithelial Cell Urine Occasional /hpf (Few); WBC Urine 0-3 /hpf
[2022-02-08 23:57] LABS: Partial Thromboplastin Time 23.7 SECONDS (22.3-36.8)
[2022-02-09] VITALS (9 sets, daily range): BP systolic 107–120; BP diastolic 54–73; PULSE 65–94; RESP 14–26; TEMP 36.4–36.5; O2SAT 96–98; BMI 42.8
[2022-02-09 00:04] LABS: Add Urine Microscopic? YES; Appearance Urine Slightly Cloudy (Clear); Bilirubin Urine 1+ (Negative); Blood Urine Trace-lysed (Negative); Color Urine Amber (Yellow); Glucose Urine UA Negative (Negative); Ketones Urine Trace mg/dL (Negative); Leukocyte Esterase Ur Negative LEU/UL (Negative); Nitrate Urine Negative (Negative); Protein Urine Negative (Negative); Specific Grav Ur 1.025 (1.001-1.035); pH Urine 6.5 (5.0-9.0)
[2022-02-09 00:06] LABS: Troponin I < 0.012 ng/mL (0.000-0.034)
--- NOTE | 2022-02-09 01:20 | PM.IMHP ---
H&P: HPI History of Present Illness Date/Time: 02/09/22 01:20 Chief Complaint: 21 years old female with past medical history of POTS and anxiety and depression syncope presented to the hospital with syncopal episode patient was sitting in a chair patient fell to the ground hit her head patient had multiple episodes of syncope at home and at EMS patient had also complain of left-sided numbness and weakness which completely resolved now patient has similar episode in the past with complete workup of including MRI was negative concern for malingering patient will be admitted to the hospital for further evaluation and treatment per neurology recommendation Patient had event monitor placed in the past showed POTS and PSVT Review of Systems Review of Systems: Twelve system review was done negative except [facility] Past Medical History Medical History Autism Depression with anxiety H/O retained foreign body fully removed Insomnia POTS (postural orthostatic tachycardia syndrome) PSVT (paroxysmal supraventricular tachycardia) Surgical History Surgical History S/P T&A (status post tonsillectomy and adenoidectomy) Family History Family History Father Cerebrovascular accident Sibling Heart disease Social History Social History Social History: High school student, senior Years smoked: 0.5 Smoking status: Former smoker Alcohol intake: never Substance use: current Substance use type: marijuana Other substance usage details: every few months Last use: No recent use in the past month. Gender identity (if verbalized by the patient): Female Spiritual care concerns: No Meds Home Medications and Allergies Home Medications Medication Instructions Recorded Confirmed Type albuterol sulfate 2.5 mg/3 mL 2.5 mg inhalation TID PRN Wheezing 12/01/21 12/01/21 History (0.083 %) solution for nebulization aspirin 81 mg tablet,delayed 81 mg PO DAILY 12/01/21 12/01/21 History release cetirizine 10 mg tablet 10 mg PO DAILY 12/01/21 12/01/21 History doxepin 75 mg capsule 1 cap PO DAILY 12/01/21 12/01/21 History fluoxetine 20 mg capsule 1 cap PO HS 12/01/21 12/01/21 History metoprolol tartrate 25 mg tablet 25 mg PO BID 12/01/21 12/01/21 History gabapentin 300 mg capsule 300 mg PO BID #10 caps 12/03/21 12/01/21 Rx Allergies Allergy/AdvReac Type Severity Reaction Status Date / Time sulfamethoxazole Allergy Severe Swelling Verified 02/08/22 22:47 of Lip/Tongue/Throat trimethoprim Allergy Severe Swelling Verified 02/08/22 22:47 of Lip/Tongue/Throat citalopram Allergy Intermediate Swelling Verified 02/08/22 22:47 of Lip/Tongue/Throat Penicillins Allergy Intermediate Hives / Verified 02/08/22 22:47 Red Face risperidone Allergy Intermediate Swelling Verified 02/08/22 22:47 of Lip/Tongue/Throat sertraline Allergy Mild Swelling Verified 02/08/22 22:47 of Lip/Tongue/Throat cinnamon Allergy Swelling Verified 02/08/22 22:47 of Lip/Tongue/Throat Vital Signs Vital Signs - 24 hr 02/08/22 22:30 02/08/22 22:45 02/08/22 23:27 Temperature 97.6 F Pulse Rate 79 79 92 Respiratory Rate 20 18 Blood Pressure 133/62 107/66 Pulse Oximetry 99 100 Oxygen Delivery Room Air 02/09/22 00:47 Temperature Pulse Rate 78 Respiratory Rate 26 H Blood Pressure Pulse Oximetry 98 Oxygen Delivery Exam Narrative: GENERAL: Well appearing, well-nourished, non-toxic, in no acute distress. HEAD: Normocephalic, atraumatic. NECK: Supple. No adenopathy, no masses. RESPIRATORY: Airway patent, respirations nonlabored. Clear to auscultation bilaterally, no rales, rhonchi, wheezing. CARDIOVASCULAR: Regular rate and rhythm w
--- NOTE | 2022-02-09 01:36 | PC.NURSE ---
Kyler in lab added on UDS
[2022-02-09] MEDS: SODIUM CHLORIDE 0.9% IV 1,000 ML 100 ML IV CONT ×2 (01:45→13:12)
[2022-02-09 02:38] LABS: Amphetamine Screen Urine Negative (Negative); Barbiturate Screen Urine Negative (Negative); Benzodiazepines Screen Urine Negative (Negative); Cannabinoid Screen Urine Negative (Negative); Cocaine Screen Urine Negative (Negative); Methadone Screen Urine Negative (Negative); Opiate Screen Urine Negative (Negative); Phencyclidine Screen Urine Negative (Negative)
--- NOTE | 2022-02-09 02:57 | ADMGEN ---
This patient, Angelique Lea, was admitted to Medical Room 246-01. Patient/family oriented to hospital policies and general routines including ID bracelet, bed and alarms, visiting hours, pain management, procedures, bathroom and other care routines, personal items, smoking policy, room service/diet, and visiting hours. Information on how to activate the Rapid Response Team has been discussed. Patient/Family are encouraged to report perceived risks to care and to ask questions if they do not understand what they are told or what they should do.
[2022-02-09 04:11] LABS: Basophils Absolute Auto 0.1 K/mm3 (0.0-0.1); Basophils Percent Auto 0.7 % (0.2-1.2); Eosinophils Absolute Auto 0.1 K/mm3 (0-0.3); Eosinophils Percent Auto 1.6 % (0-4.4); Hematocrit 42.9 % (37.0-47.0); Immature Granulocyte Absolute 0.02 K/mm3 (0.00-0.031); Immature Granulocyte Percent A 0.2 % (0-0.5); Lymphocytes Absolute Auto 3.31 K/mm3 (0.9-3.2); Lymphocytes Percent Auto 37.7 % (18.3-44.2); Mean Corpuscular HGB Conc 32.6 g/dl (32-36); Mean Corpuscular Hemoglobin 28.9 pg (26-34); Mean Corpuscular Volume 88.6 fl (80-100); Mean Platelet Volume 10.7 fl (7.4-10.4); Monocytes Absolute Auto 0.7 K/mm3 (0.1-0.6); Monocytes Percent Auto 8.3 % (2.6-8.5); Neutrophils Absolute Auto 4.5 K/mm3 (1.3-6.7); Neutrophils Percent Auto 51.5 % (45.5-73.1); Platelet Count Result 331 k/mm3 (150-375); Red Blood Count 4.84 M/mm3 (4.2-5.4); Red Cell Distribution Width 13.2 % (11.5-14.5); White Blood Count 8.8 K/mm3 (4.5-10.0)
[2022-02-09 04:26] LABS: Alanine Aminotransferase 35 U/L (6-35); Alkaline Phosphatase 106 U/L (38-126); Anion Gap 13 mmol/L (8-16); Aspartate Amino Transferase 28 U/L (14-36); Bilirubin,Total 0.2 mg/dL (0.2-1.3); Blood Urea Nitrogen 7 mg/dL (7-17); Calcium 8.5 mg/dL (8.4-10.2); Carbon Dioxide 24 mmol/L (22-30); Chloride 102 mmol/L (98-107); Estimated CRCL calculation 157 ml/min; Estimated Glomerular Filt Rate > 60; Glucose 92 mg/dL (65-110); Potassium 3.5 mmol/L (3.4-5.0); Sodium 139 mmol/L (137-145)
[2022-02-09 04:37] LABS: Troponin I < 0.012 ng/mL (0.000-0.034)
--- NOTE | 2022-02-09 07:15 | PC.NURSE ---
Pt has verbalized that she has no intent or suicide thoughts at this time. Call placed to Dr Rodriguez aware and stated to just observe.
[2022-02-09] MEDS: ENOXAPARIN 40 MG/0.4 ML SYRINGE SUB-Q (08:50)
--- NOTE | 2022-02-09 15:24 | PM.DS ---
DS: Admitting Diagnosis Discharge Date February 09, 2022 Admitting Diagnosis Syncope DS: Discharge Diagnosis Discharge Diagnosis (1) Depression with anxiety: Code(s): F41.8 - Other specified anxiety disorders Status: Chronic Assessment and Plan: Resume home medication (2) Syncope: Code(s): R55 - Syncope and collapse Status: Acute Assessment and Plan: Most likely related to dehydration and Pots give IV fluid Will get echo Neurology recommendation pending Unlikely patient has acute stroke (3) Left-sided muscle weakness: Code(s): M62.81 - Muscle weakness (generalized) Status: Acute Assessment and Plan: Probable malingering Patient has similar episode recently MRI of the brain was negative (4) PSVT (paroxysmal supraventricular tachycardia): Code(s): I47.1 - Supraventricular tachycardia Status: Chronic Assessment and Plan: Patient has history of supraventricular arrhythmia PSVT, Telemonitor DS: Summary Hospital Course Hospital Course: 21 years old female with past medical history of POTS and anxiety and depression syncope presented to the hospital with syncopal episode patient was sitting in a chair patient fell to the ground hit her head patient had multiple episodes of syncope at home and at EMS patient had also complain of left-sided numbness and weakness which completely resolved now patient has similar episode in the past with complete workup of including MRI was negative concern for malingering patient will be admitted to the hospital for further evaluation and treatment per neurology recommendation Patient had event monitor placed in the past showed POTS and PSVT All symptoms resolved. She was evaluated by crisis Care who deemed her safe for discharge. Complete workup including neurology consultation was all negative. Recommend aggressive management of her POTS with compression stockings, salt tabs and hydration. Time Spent with Patient Time attestation: Total time spent providing and/or coordinating discharge services: DS: Data Data Completed and Pending Labs on day of discharge: Labs from last 24 hours 02/09/22 02/09/22 02/08/22 04:04 04:04 23:45 WBC 8.8 RBC 4.84 Hgb 14.0 Hct 42.9 MCV 88.6 MCH 28.9 MCHC 32.6 RDW 13.2 Plt Count 331 MPV 10.7 H Immature Gran % (Auto) 0.2 Neut % (Auto) 51.5 Lymph % (Auto) 37.7 [place] % (Auto) 8.3 Eos % (Auto) 1.6 Baso % (Auto) 0.7 Lymph # (Auto) 3.31 H [place] # (Auto) 0.7 H Eos # (Auto) 0.1 Baso # (Auto) 0.1 Abs Immat Gran (auto) 0.02 Absolute Neuts (auto) 4.5 Absolute Nucleated RBC 0.0 Nucleated RBC % 0.0 PT INR APTT Sodium 139 Potassium 3.5 Chloride 102 Carbon Dioxide 24 Anion Gap 13 BUN 7 Creatinine 0.60 L Estim Creat Clear Calc 157 Estimated GFR > 60 Glucose 92 POC Capillary Glucose Calcium 8.5 Magnesium Total Bilirubin 0.2 AST 28 ALT 35 Alkaline Phosphatase 106 Troponin I < 0.012 Total Protein 7.0 Albumin 4.0 Urine Color Urine Appearance Urine pH Ur Specific [place] Urine Protein Urine Glucose (UA) Urine Ketones Ur Blood (Man) Urine Nitrate Urine Bilirubin Urine Urobilinogen Leukocyte Esterase Rfl Urine RBC Urine WBC Ur Squamous Epith Cells Urine Bacteria Urine Mucus Urine Opiates Screen Negative Urine Methadone Screen Negative Ur Barbiturates Screen Negative Ur Phencyclidine Scrn Negative Ur Amphetamine Screen Negative U Benzodiazepines Scrn Negative Urine Cocaine Screen Negative U Cannabinoids Screen Negative 02/08/22 02/08/22 02/08/22 23:45 23:37 23:37 WBC RBC Hgb Hct MCV MCH MCHC RDW Plt Count MPV Immature Gran % (Auto) Neut % (Auto) Lymph % (Auto) [place] % (Auto) Eos % (Auto) Baso %
--- NOTE | 2022-02-09 15:48 | WPDNEURCNPN ---
Assessment and Plan Assessment and plan (1) Syncope: Code(s): R55 - Syncope and collapse Status: Acute Plan normal neurological exam we will continue the treatment as fast as the MRI of the brain is negative no further evaluation recommended previous diagnosis is carried out as such Consult date: 02/09/22 Reason for consult: 21 years old right-handed female has been admitted to [facility] through the emergency room the patient came in with the complaints of syncopal episodes patient carries a diagnosis of anxiety with depression and POTS [place] on initial evaluation she reported that she was sitting down talking to her grandparents when she passed out she fell out of the chair and hit her head on the ground she has had at least 9 most syncopal episodes EMS were called to the scene was found on the floor by EMS she was unable to feel on the right side of her body that is why she came to the emergency room she has been taking aspirin 81 mg daily doxepin 75 mg daily metoprolol 25 mg twice a day and fluoxetine 40 mg daily in addition she is allergic to multiple medications as outlined. He carries the diagnosis of 1. Autism 2. Anxiety with depression 3. Postural orthostatic tachycardia syndrome and paroxysmal supra ventricular tachycardia, she is currently everyday smoker and substance user, initial vital signs were stable with a blood pressure 133/62, general physical examination was normal she had the drop of the right upper extremity when examined by the physician against gravity and routine labs was normal, chest x-ray negative, CT scan of the brain negative, EKG normal with no atrial fibrillation HPI: [facility] Past Medical History Medical History Autism Depression with anxiety H/O retained foreign body fully removed Insomnia POTS (postural orthostatic tachycardia syndrome) PSVT (paroxysmal supraventricular tachycardia) Surgical History Surgical History S/P T&A (status post tonsillectomy and adenoidectomy) Family History Family History Father Cerebrovascular accident Sibling Heart disease Social History Social History Social History: High school student, senior Years smoked: 0.5 Smoking status: Current every day smoker Tobacco type: cigarettes Alcohol intake: never Substance use: current Substance use type: marijuana Other substance usage details: every few months Last use: No recent use in the past month. Gender identity (if verbalized by the patient): Female Spiritual care concerns: No Meds Home Medications and Allergies Home Medications Medication Instructions Recorded Confirmed Type albuterol sulfate 2.5 mg/3 mL 2.5 mg inhalation TID PRN Wheezing 12/01/21 02/09/22 History (0.083 %) solution for nebulization aspirin 81 mg tablet,delayed 81 mg PO DAILY 12/01/21 02/09/22 History release cetirizine 10 mg tablet 10 mg PO DAILY 12/01/21 02/09/22 History doxepin 75 mg capsule 1 cap PO DAILY 12/01/21 02/09/22 History metoprolol tartrate 25 mg tablet 25 mg PO BID 12/01/21 02/09/22 History gabapentin 300 mg capsule 300 mg PO BID #10 caps 12/03/21 02/09/22 Rx fluoxetine 40 mg capsule 40 mg PO DAILY 02/09/22 02/09/22 History Allergies Allergy/AdvReac Type Severity Reaction Status Date / Time sulfamethoxazole Allergy Severe Swelling Verified 02/08/22 22:47 of Lip/Tongue/Throat trimethoprim Allergy Severe Swelling Verified 02/08/22 22:47 of Lip/Tongue/Throat citalopram Allergy Intermediate Swelling Verified 02/08/22 22:47 of Lip/Tongue/Throat Penicillins Allergy Intermediate Hives / Verified 02/08/22 22:47 Red Face risperidone Allergy Intermediate Swelling Verified 02/08/22 22:47 of Lip/T
== END 2022-02-09 16:00 | disposition home or self-care (01) ==
LOC: ANHED 02-09 01:48 → ANH2MED 02-09 02:14
PROVIDERS: Physician Assistant; Admitting Provider Internal Medicine; Emergency Provider Emergency Medicine; PCP Physician Assistant; Visit Provider Internal Medicine
DX: R55 Syncope and collapse (principal); F41.8 Other specified anxiety disorders; M62.81 Muscle weakness (generalized); I47.1 Supraventricular tachycardia; I49.8 Other specified cardiac arrhythmias; S09.90XA Unspecified injury of head, initial encounter; W07.XXXA Fall from chair, initial encounter; R20.0 Anesthesia of skin; R51.9 Headache, unspecified; G47.00 Insomnia, unspecified; R29.707 NIHSS score 7; I45.10 Unspecified right bundle-branch block; E66.01 Morbid (severe) obesity due to excess calories; Z68.41 Body mass index [BMI] 40.0-44.9, adult; F17.210 Nicotine dependence, cigarettes, uncomplicated; F12.90 Cannabis use, unspecified, uncomplicated; Z79.52 Long term (current) use of systemic steroids; Z79.82 Long term (current) use of aspirin; Z79.899 Other long term (current) drug therapy; F84.0 Autistic disorder; Z82.49 Family history of ischemic heart disease and other diseases of the circulatory system
CPT/HCPCS: 36415; 70450; 71046; 80053; 80307; 81001; 81025; 82948; 83735; 84484; 85025; 85610; 85730; 93005; 96360; 96361; 96372; 99285; G0378; G0379; J1650; J7030

== ENCOUNTER 2023-07-08 23:12 | Emergency (ER) | payer SELFPAY ==
[2023-07-08 23:15] VITALS: BP 140/84; PULSE 95; RESP 16; TEMP 36.3; O2SAT 100
--- NOTE | 2023-07-08 23:59 | ED.GENADULT ---
HPI - General Adult General Chief complaint: Extremity Injury, Upper Stated complaint: rt arm swelling and pain Time Seen by Provider: 07/08/23 23:58 Source: patient Mode of arrival: ambulatory Limitations: no limitations History of Present Illness HPI narrative: This is a 22-year-old female with PMH of POTS who presents to the ED with chief complaint of acute onset of right upper arm pain and swelling that began yesterday. Reports the swelling she noticed has since resolved. She states the pain increased today. Reports the pain is in the right biceps area. Denies any trauma or known injury. Denies any strenuous activity. States she is not working because she is disabled. Reports history of multiple strokes as well as atrial fibrillation. States she does not take any blood thinners because they told her to take aspirin but then told her to get off of it because it made her blood too thin. Denies history of coagulopathy. Denies fevers, chills, skin discoloration, numbness, weakness, chest pain, shortness of breath, leg swelling. Per chart review patient was last admitted to this hospital and January of 2022 for syncope and collapse. She had a full neurologic evaluation and had no acute findings on the MRI. At that time they suspected malingering for acute muscle weakness. Related Data Home Medications Medication Instructions Recorded Confirmed albuterol sulfate 2.5 mg/3 mL 2.5 mg inhalation TID PRN Wheezing 12/01/21 02/09/22 (0.083 %) solution for nebulization aspirin 81 mg tablet,delayed 81 mg PO DAILY 12/01/21 02/09/22 release cetirizine 10 mg tablet 10 mg PO DAILY 12/01/21 02/09/22 doxepin 75 mg capsule 1 cap PO DAILY 12/01/21 02/09/22 metoprolol tartrate 25 mg tablet 25 mg PO BID 12/01/21 02/09/22 fluoxetine 40 mg capsule 40 mg PO DAILY 02/09/22 02/09/22 betaxolol 10 mg tablet mg 07/08/23 tizanidine 2 mg tablet mg 07/08/23 Allergies Allergy/AdvReac Type Severity Reaction Status Date / Time sulfamethoxazole Allergy Severe Swelling Verified 07/08/23 23:16 of Lip/Tongue/Throat trimethoprim Allergy Severe Swelling Verified 07/08/23 23:16 of Lip/Tongue/Throat citalopram Allergy Intermediate Swelling Verified 07/08/23 23:16 of Lip/Tongue/Throat Penicillins Allergy Intermediate Hives / Verified 07/08/23 23:16 Red Face risperidone Allergy Intermediate Swelling Verified 07/08/23 23:16 of Lip/Tongue/Throat sertraline Allergy Mild Swelling Verified 07/08/23 23:16 of Lip/Tongue/Throat cinnamon Allergy Swelling Verified 07/08/23 23:16 of Lip/Tongue/Throat Review of Systems Review of Systems: All systems as dictated in [facility] Past Medical History Medical History Autism Depression with anxiety H/O retained foreign body fully removed Insomnia POTS (postural orthostatic tachycardia syndrome) PSVT (paroxysmal supraventricular tachycardia) Surgical History Surgical History S/P T&A (status post tonsillectomy and adenoidectomy) Family History Family History Father Cerebrovascular accident Sibling Heart disease Social History Social History Social History: High school student, senior Years smoked: 0.5 Smoking status: Current every day smoker Tobacco type: cigarettes Alcohol intake: never Substance use: current Substance use type: marijuana Other substance usage details: every few months Last use: No recent use in the past month. Living arrangements: with family Occupation/Education: student Gender identity (if verbalized by the patient): Female Spiritual care concerns: No Exam Narrative: GENERAL: Well-appearing, well-nourished, and in no acute distress. HEA
[2023-07-09] MEDS: KETOROLAC 30 MG/ML VIAL (*BKC) IM (00:07)
[2023-07-09 00:41] VITALS: BP 136/82; PULSE 82; RESP 15; O2SAT 100
== END 2023-07-09 00:42 | disposition home or self-care (01) ==
LOC: ANHED 07-09 00:31
PROVIDERS: Emergency Provider Physician Assistant; PCP Internal Medicine
DX: S46.211A Strain of muscle, fascia and tendon of other parts of biceps, right arm, initial encounter (principal); G90.A Postural orthostatic tachycardia syndrome [POTS]; I48.91 Unspecified atrial fibrillation; F84.0 Autistic disorder; F41.8 Other specified anxiety disorders; Z86.73 Personal history of transient ischemic attack (TIA), and cerebral infarction without residual deficits; Z79.82 Long term (current) use of aspirin; F17.210 Nicotine dependence, cigarettes, uncomplicated; X58.XXXA Exposure to other specified factors, initial encounter
CPT/HCPCS: 96372; 99283; J1885

== ENCOUNTER 2023-07-09 22:19 | Emergency (ER) | payer SELFPAY ==
[2023-07-09 22:20] VITALS: BP 133/74; PULSE 88; RESP 16; TEMP 36.6; O2SAT 100
--- NOTE | 2023-07-09 22:45 | PC.NURSE ---
Pt ambulated to desk and stated i'm just gonna leave Pt encouraged to stay and be seen by this RN. Pt ambulated out of ED.
== END 2023-07-09 22:51 | disposition left against medical advice (07) ==
PROVIDERS: PCP Internal Medicine
DX: M79.601 Pain in right arm (principal)
CPT/HCPCS: 99199

== ENCOUNTER 2024-04-20 16:49 | Emergency (ER) | payer BC, SELFPAY ==
--- NOTE | ~2024-04-20 | US_ITS ---
US OB <= 14 weeks fetus DATE: 04/20/2024 20:09 INDICATION: Abdominal pain, vaginal bleeding. Positive test. TECHNIQUE: Real-time imaging via transabdominal and transvaginal approaches COMPARISON: None FINDINGS: The uterus measures 8.3 cm sagittal, 3.6 cm AP and 4.9 cm transverse dimension. The central endometrial echo measures up to 16 mm AP dimension. No intrauterine gestational sac is id entified. The right ovary measures 3.0 x 2.3 x 1.7 cm. 1.7 x 1.2 x 1.2 cm right ovarian cyst The left ovary measures 3.7 x 3.5 x 3.1 cm. There are cysts measuring up to 2.9 x 2.0 x 2.5 cm and 1. 3 x 0.9 x 1.3 cm. IMPRESSION: No intrauterine gestational sac Bilateral ovarian cysts Reviewed, dictated and finalized at [facility] Reviewed, dictated and finalized at [facility] [employer]
[2024-04-20 16:50] VITALS: BP 118/65; PULSE 83; RESP 16; TEMP 36.4; O2SAT 99
--- NOTE | 2024-04-20 19:42 | ED.PREGNANCY ---
HPI - General Chief complaint: Vaginal Bleeding Stated complaint: 4wks , vaginal bleeding started yesterday Time Seen by Provider: 04/20/24 18:34 History of Present Illness HPI Narrative: Patient is a 23-year-old female who presents to the ER with complaints of vaginal bleeding and cramping. She reports she is approximately 1 month . Yesterday she noticed some dark red vaginal bleeding but today she endorses abdominal cramping, clots and bright red blood. Patient reports she has had a miscarriage in the past. She is uncertain when her last menstrual period was, as she does not have regular menstrual periods. Patient endorses a history of endometriosis and polycystic ovarian syndrome. She has had no live pregnancies. Patient reports she does have an OBGYN. She denies any shortness of breath, fevers, back pain. Related Data Home Medications Medication Instructions Recorded Confirmed albuterol sulfate 2.5 mg/3 mL 2.5 mg inhalation TID PRN Wheezing 12/01/21 02/09/22 (0.083 %) solution for nebulization aspirin 81 mg tablet,delayed 81 mg PO DAILY 12/01/21 02/09/22 release cetirizine 10 mg tablet 10 mg PO DAILY 12/01/21 02/09/22 doxepin 75 mg capsule 1 cap PO DAILY 12/01/21 02/09/22 metoprolol tartrate 25 mg tablet 25 mg PO BID 12/01/21 02/09/22 fluoxetine 40 mg capsule 40 mg PO DAILY 02/09/22 02/09/22 betaxolol 10 mg tablet mg 07/08/23 tizanidine 2 mg tablet mg 07/08/23 Allergies Allergy/AdvReac Type Severity Reaction Status Date / Time sulfamethoxazole Allergy Severe Swelling Verified 04/20/24 16:50 of Lip/Tongue/Throat trimethoprim Allergy Severe Swelling Verified 04/20/24 16:50 of Lip/Tongue/Throat citalopram Allergy Intermediate Swelling Verified 04/20/24 16:50 of Lip/Tongue/Throat Penicillins Allergy Intermediate Hives / Verified 04/20/24 16:50 Red Face risperidone Allergy Intermediate Swelling Verified 04/20/24 16:50 of Lip/Tongue/Throat sertraline Allergy Mild Swelling Verified 04/20/24 16:50 of Lip/Tongue/Throat cinnamon Allergy Swelling Verified 04/20/24 16:50 of Lip/Tongue/Throat Review of Systems Review of Systems: All systems reviewed & are unremarkable except as noted in HPI and below PMFSH Past Medical History Medical History Autism Depression with anxiety H/O retained foreign body fully removed Insomnia POTS (postural orthostatic tachycardia syndrome) PSVT (paroxysmal supraventricular tachycardia) Surgical History Surgical History S/P T&A (status post tonsillectomy and adenoidectomy) Family History Family History Father Cerebrovascular accident Sibling Heart disease Social History Social History Social History: High school student, senior Years smoked: 0.5 Smoking status: Current every day smoker Tobacco type: cigarettes Alcohol intake: never Substance use: current Substance use type: marijuana Other substance usage details: every few months Last use: No recent use in the past month. Living arrangements: with family Occupation/Education: student Gender identity (if verbalized by the patient): Female Spiritual care concerns: No Exam Narrative: GENERAL: Well appearing, well-nourished, non-toxic, in no acute distress. HEAD: Normocephalic, atraumatic. NECK: Supple. No adenopathy, no masses. RESPIRATORY: Airway patent, respirations nonlabored. Clear to auscultation bilaterally, no rales, rhonchi, wheezing. CARDIOVASCULAR: Regular rate and rhythm without murmurs, rubs, or gallops. Peripheral pulses 2+ and equal bilaterally. ABDOMINAL: Soft, nontender, nondistended, no hepatosplenomegaly. Normoactive BS. MUSCULOSKELETAL: Moves all extremities. Strength/ROM intact without gross deformities. SKIN: Warm, dry, normal color. No rashes. NEURO: A&O X3. Speech clear. Cranial nerves II-XII grossly intact. Steady gait. No ataxic movements. PSYCHIATRIC: Appropriate mood and affect. Normal interaction. Course Vital Signs Vital signs: Vital Signs Temperature 36.4 C 04/20/24 16:50 Pulse Rate 83 04/20/24 16:50 Respiratory Rate 16 04/20/24 16:50 Blood Pressure 118/65 04/20/24 16:50 Pulse Oximetry 99 04/20/24 16:50 Oxygen Delivery Room Air 04/20/24 16:50 Temperature 36.4 C 04/20/24 16:50 Pulse Rate 83 04/20/24 16:50 Respiratory Rate 16 04/20/24 16:50 Blood Pressure 118/65 04/20/24 16:50 Pulse Oximetry 99 04/20/24 16:50 Oxygen Delivery Room Air 04/20/24 16:50 MDM - OB/Uterine Contractions MDM Narrative Medical decision making narrative: Patient is a 23-year-old female who presents to the ER with complaints of vaginal bleeding and cramping. She reports she is approximately 1 month . Yesterday she noticed some dark red vaginal bleeding but today she endorses abdominal cramping, clots and bright red blood. Patient reports she has had a miscarriage in the past. She is uncertain when her last menstrual period was, as she does not have regular menstrual periods. Patient endorses a history of endometriosis and polycystic ovarian syndrome. She has had no live pregnancies. Patient reports she does have an OBGYN. She denies any shortness of breath, fevers, back pain. Labs Ordered: CBC, CMP, beta HCG, Rho D Imaging Ordered: US OB < 14 weeks fetus Results: US indicated: No intrauterine gestational sac Bilateral ovarian cysts Diagnosis:abnormal uterine bleeding Disposition/Plan: Patient's ultrasound indicated she is not . Results shared with the patient. Patient verbalizes understanding and says I have POTS and sometimes that makes my tests positive. She refused further blood work or work-up and would like to be discharged from the ER. Patient advised to follow-up with her OBGYN as soon as possible. Differential Diagnosis Differential diagnosis: Likely other (Chemical , miscarriage, normal menstrual bleeding) Medical Records Attestation: I reviewed the patient's medical records. Imaging Data Attestation: I personally reviewed and interpreted this imaging study as follows: Radiologist's impression: Impressions Ultrasound 04/20/24 20:16 IMPRESSION: No intrauterine gestational sac Bilateral ovarian cysts Discharge Plan Discharge Clinical Impression: Abnormal uterine bleeding Patient Disposition: Home, Self-Care Condition: Stable Instructions: Antibiotic Form, Abnormal (Dysfunctional) Uterine Bleeding (ED) Additional Instructions: Please follow-up with your OBGYN his response. You may take ibuprofen at home for discomfort or pain. Please return to the ER with any worsening symptoms. Prescriptions: No Action albuterol sulfate 2.5 mg /3 mL (0.083 %) solution for nebulization 2.5 mg inhalation TID PRN (Reason: Wheezing) metoprolol tartrate 25 mg tablet 25 mg PO BID Rx Instructions: TAKE 1 TABLET TWICE DAILY doxepin 75 mg capsule 1 cap PO DAILY cetirizine 10 mg tablet 10 mg PO DAILY aspirin 81 mg Tablet,Delayed Release (Dr/Ec) 81 mg PO DAILY gabapentin 300 mg capsule 300 mg PO BID Qty: 10 0RF fluoxetine 40 mg capsule 40 mg PO DAILY betaxolol 10 mg tablet tizanidine 2 mg Tablet Follow-up/Referrals: Omer,Eduardo Leigh MD [Primary Care Provider] - Time of Disposition: 20:52
--- NOTE | 2024-04-20 20:19 | PC.NURSE ---
RN unable to start line at this time. Asked another nurse for assistance. Awaiting PIV placement.
--- NOTE | 2024-04-20 20:31 | PC.NURSE ---
patient is now wanting to leave [facility]. RN is going to try to talk patient into waiting alittle longer for discharge paperwork. Patient is in no signs of distress. WAGE ANALYST informed that patient wants to leave.
--- NOTE | 2024-04-20 20:34 | PC.NURSE ---
patient states that she will wait 20 minutes to be seen by provider and be formally discharged.
[2024-04-20] MEDS: KETOROLAC 15 MG/ML VIAL (*BKC) IV PUSH (20:42)
--- NOTE | 2024-04-20 20:45 | PC.NURSE ---
patient medication given at this time.
== END 2024-04-20 20:56 | disposition home or self-care (01) ==
PROVIDERS: Emergency Provider Registered Nurse; PCP Internal Medicine
DX: N93.9 Abnormal uterine and vaginal bleeding, unspecified (principal); G90.A Postural orthostatic tachycardia syndrome [POTS]; F84.0 Autistic disorder; F41.8 Other specified anxiety disorders; F17.210 Nicotine dependence, cigarettes, uncomplicated; N83.202 Unspecified ovarian cyst, left side; N83.201 Unspecified ovarian cyst, right side
CPT/HCPCS: 76801; 96374; 99284; J1885